=== PATIENT | female | born 1975 | race Caucasian/White ===

== ENCOUNTER 2019-02-10 21:50 | Emergency (ER) | payer BC ==
--- OUTSIDE RECORDS SUMMARY | 2019-02-10 21:52 | XMS REPORT ---
:1975 Author Organization [facility] Address [address] [place] [address] Dr. Mccurdy [address] [place] [id number] Care Team Providers Name Role Phone Unavailable Unavailable Unavailable Problems This patient has no known problems. Allergies, Adverse Reactions, Alerts This patient has no known allergies or adverse reactions. Medications This patient has no known medications.
[2019-02-10 23:05] LABS: Absolute Lymphocytes (CBC) 3.1 K/uL (0.7-4.9); Basophils % 0.4 % (0-1.3); Lymphocytes % 29.2 % (15.3-44.8); MPV 9.2 fL (7.6-11.3); RBC Red Blood Cell Count 4.18 M/uL (3.86-4.86)
[2019-02-10 23:15] LABS: Urine Blood TRACE (NEG); Urine Glucose NEGATIVE (NEG); Urine Protein NEGATIVE (NEG)
[2019-02-10 23:19] LABS: ALT/SGPT 30 U/L (12-78); AST/SGOT 15 U/L (15-37); Albumin 3.6 g/dL (3.4-5.0); Alkaline Phosphatase 80 U/L (45-117); BUN Blood Urea Nitrogen 7 mg/dL (7-18); Bicarbonate 28 mmol/L (21-32); Bilirubin Direct 0.2 mg/dL (0-0.2); Bilirubin Total 0.6 mg/dL (0.2-1.0); Glucose Level 99 mg/dL (74-106); Lipase 57 U/L (73-393); Potassium 3.2 mmol/L (3.5-5.1); Protein, Total 7.6 g/dL (6.4-8.2); Sodium Level 140 mmol/L (136-145)
--- NOTE | 2019-02-11 02:38 | ER ---
Nurse's Notes [facility] Name: Brandi Joyce Age: 43 yrs Sex: Female : 1975 Arrival Date: 02/10/2019 Time: 21:54 Bed Ultrasound Private MD: Diagnosis: Other ovarian cysts Presentation: 02/10 21:57 Presenting complaint: Patient states: Lower abd pain since Monday, denies N/V/D, la1 reports sharp pain in lower abd when using restroom. Transition of care: patient was not received from another setting of care. Onset of symptoms was February 10, 2019. Risk Assessment: Do you want to hurt yourself or someone else? Patient reports no desire to harm self or others. Initial Sepsis Screen: Does the patient meet any 2 criteria? No. Patient's initial sepsis screen is negative. Does the patient have a suspected source of infection? No. Patient's initial sepsis screen is negative. Care prior to arrival: None. 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 - Social history:: Smoking status: Patient uses tobacco products, smokes one-half pack cigarettes per day. - Ebola Screening: : No symptoms or risks identified at this time. Screenin:37 Abuse screen: Denies threats or abuse. Denies injuries from another. Nutritional rr5 screening: No deficits noted. Tuberculosis screening: No symptoms or risk factors identified. Fall Risk IV access (20 points). Total Schmidt Fall Scale indicates No Risk (0-24 pts). Assessment: 22:00 General: Appears in no apparent distress. uncomfortable, Behavior is calm, cooperative, rr5 appropriate for age. Pain: Complains of pain in abdomen Pain does not radiate. Pain currently is 5 out of 10 on a pain scale. Quality of pain is described as aching, Pain began gradually, Is intermittent. Neuro: Level of Consciousness is awake, alert, obeys commands, Oriented to person, place, time, situation, Appropriate for age. Cardiovascular: Capillary refill < 3 seconds Patient's skin is warm and dry. Respiratory: Airway is patent Respiratory effort is even, unlabored, Respiratory pattern is regular, symmetrical. GI: Abdomen is round obese, Bowel sounds present X 4 quads. Abd is soft and non tender Reports lower abdominal pain, upper abdominal pain. : No signs and/or symptoms were reported regarding the genitourinary system. EENT: No signs and/or symptoms were reported regarding the EENT system. Derm: Skin is intact, Skin temperature is warm. Musculoskeletal: Circulation, motion, and sensation intact. Capillary refill < 3 seconds. 23:00 Reassessment: Patient appears in no apparent distress at this time. Patient and/or rr5 family updated on plan of care and expected duration. Pain level reassessed. Patient is alert, oriented x 3, equal unlabored respirations, skin warm/dry/pink. chatting with wrapping machine helper at bedside. 02/11 00:00 Reassessment: Patient appears in no apparent distress at this time. Patient and/or rr5 family updated on plan of care and expected duration. Pain level reassessed. Patient is alert, oriented x 3, equal unlabored respirations, skin warm/dry/pink. awaiting for CT result. 00:40 Reassessment: reassessment done by ED provider with order made of transvaginal 5 ultrasound. 02:00 Reassessment: follow up to xray department for the ultrasound staff gas operation manager. rr5 02:44 Reassessment: Patient appears in no apparent distress at this time. back from 5 ultrasound ED provider spoke to patient explained the results. patient verbalized understanding. discharge instruction given and explained without complaints made. Vital Signs: 02/10 21:58 BP 147 / 103; Pulse 108; Resp 16; Temp 97.6; Pulse Ox 100% on R/A; Weight 123.83 kg; la1 Height 5 ft. 6 in. (167.64 cm); Pain 4/10; 23:00 BP 141 / 95; Pulse 99; Resp 17; Pulse Ox 99% ; rr5 02/11 00:00 BP 155 / 95; Pulse 95; Resp 19; Pulse Ox 97% ; rr5 01:05 BP 145 / 101; Pulse 90; Resp 17; Pulse Ox 98% ; rr5 02:00 BP 165 / 105; Pulse 92; Resp 17; Pulse Ox 99% ; rr5 02:40 BP 148 / 98; Pulse 86; Resp 19; Pulse Ox 100% ; rr5 02/10 21:58 Body Mass Index 44.06 (123.83 kg, 167.64 cm) la1 ED Course: 02/10 21:54 Patient arrived in ED. cf2 21:57 Arm band placed on right wrist. la1 21:58 Triage completed. la1 22:00 Patient has correct armband on for positive identification. Placed in gown. Bed in low rr5 position. Call light in reach. Side rails up X2. Pulse ox on. NIBP on. 22:02 Kunal Oshea, ASHLEY is Primary Nurse. rr5 22:04 Ishan Vargas PA is PHCP. jr8 22:04 Percy León MD is Attending Physician. jr8 22:35 Inserted saline lock: 20 gauge in right forearm, using aseptic technique. Blood rr5 collected. 23:59 CT Abd/Pelvis - IV Contrast Only In Process Unspecified. EDMS 02/11 02:35 Char Brown MD is Referral Physician. jr8 02:36 Transvaginal Study (probe) In Process Unspecified. EDMS 02:50 No provider procedures requiring assistance completed. IV discontinued, intact, rr5 bleeding controlled, No redness/swelling at site. Pressure dressing applied. Administered Medications: No medications were administered Outcome: 02:36 Discharge ordered by . jr8 02:50 Discharged to home ambulatory, with family. rr5 02:50 Condition: stable 02:50 Discharge instructions given to patient, Instructed on discharge instructions, follow up and referral plans. medication usage, Demonstrated understanding of instructions, follow-up care, medications, Prescriptions given X 2. 02:50 Patient left the ED. rr5 Signatures: Dispatcher [employer] EDSD Ishan Vargas PA PA jr8 Faisal Norris RN RN la1 Kunal Oshea RN RN rr5 Zahra Perry cf2
--- NOTE | 2019-02-11 02:39 | EDPHYS ---
Physician Documentation [facility] Name: Brandi Joyce Age: 43 yrs Sex: Female : 1975 Arrival Date: 02/10/2019 Time: 21:54 Bed Ultrasound Private MD: ED Physician Percy León HPI: 02/10 23:19 This 43 yrs old Female presents to ER via Ambulatory with complaints of jr8 Abdominal Pain. 23:19 The patient presents with abdominal pain in the lower abdomen. Onset: The jr8 symptoms/episode began/occurred acutely, 2 day(s) ago. 23:19 The symptoms radiate to back. Associated signs and symptoms: none. The symptoms are jr8 described as vague. Modifying factors: The symptoms are alleviated by nothing, the symptoms are aggravated by nothing. Severity of pain: At its worst the pain was moderate in the emergency department the pain is unchanged. The patient has not experienced similar symptoms in the past. The patient has not recently seen a physician. Patient stated that she started with bilateral lower back pain that went to the abdomen. Now just having lower abdominal pain . 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 - Social history:: Smoking status: Patient uses tobacco products, smokes one-half pack cigarettes per day. - Ebola Screening: : No symptoms or risks identified at this time. ROS: 23:19 Eyes: Negative for injury, pain, redness, and discharge, ENT: Negative for injury, jr8 pain, and discharge, Neck: Negative for injury, pain, and swelling, Cardiovascular: Negative for chest pain, palpitations, and edema, Respiratory: Negative for shortness of breath, cough, wheezing, and pleuritic chest pain, MS/Extremity: Negative for injury and deformity, Skin: Negative for injury, rash, and discoloration, Neuro: Negative for headache, weakness, numbness, tingling, and seizure. 23:19 Abdomen/GI: Positive for abdominal pain, Negative for nausea, vomiting, and diarrhea, constipation, abdominal cramps, abdominal distension, anorexia, dysphagia, hematemesis, black/tarry stool, rectal pain, rectal bleeding, bowel incontinence, flatulence. 23:19 Back: Positive for pain at rest, Negative for pain with movement. Exam: 23:19 Eyes: Pupils equal round and reactive to light, extra-ocular motions intact. Lids and jr8 lashes normal. Conjunctiva and sclera are non-icteric and not injected. Cornea within normal limits. Periorbital areas with no swelling, redness, or edema. ENT: Nares patent. No nasal discharge, no septal abnormalities noted. Tympanic membranes are normal and external auditory canals are clear. Oropharynx with no redness, swelling, or masses, exudates, or evidence of obstruction, uvula midline. Mucous membranes moist. Neck: Trachea midline, no thyromegaly or masses palpated, and no cervical lymphadenopathy. Supple, full range of motion without nuchal rigidity, or vertebral point tenderness. No Meningismus. Cardiovascular: Regular rate and rhythm with a normal S1 and S2. No gallops, murmurs, or rubs. Normal PMI, no JVD. No pulse deficits. Respiratory: Lungs have equal breath sounds bilaterally, clear to auscultation and percussion. No rales, rhonchi or wheezes noted. No increased work of breathing, no retractions or nasal flaring. Back: No spinal tenderness. No costovertebral tenderness. Full range of motion. Skin: Warm, dry with normal turgor. Normal color with no rashes, no lesions, and no evidence of cellulitis. MS/ Extremity: Pulses equal, no cyanosis. Neurovascular intact. Full, normal range of motion. Neuro: Awake and alert, GCS 15, oriented to person, place, time, and situation. Cranial nerves II-XII grossly intact. Motor strength 5/5 in all extremities. Sensory grossly intact. Cerebellar exam normal. Normal gait. 23:19 Abdomen/GI: Inspection: obese Bowel sounds: active, all quadrants, Palpation: soft, in all quadrants, mild abdominal tenderness, in the suprapubic area, mass, is not appreciated, rebound tenderness, is not appreciated, voluntary guarding, is not appreciated, involuntary guarding, is not appreciated, no appreciated organomegaly, Indicators: McBurney's point is not tender, Stratton's sign is negative, Rovsing's sign is negative, Liver: tenderness, is not appreciated. Vital Signs: 21:58 BP 147 / 103; Pulse 108; Resp 16; Temp 97.6; Pulse Ox 100% on R/A; Weight 123.83 kg; la1 Height 5 ft. 6 in. (167.64 cm); Pain 4/10; 23:00 BP 141 / 95; Pulse 99; Resp 17; Pulse Ox 99% ; rr5 02/11 00:00 BP 155 / 95; Pulse 95; Resp 19; Pulse Ox 97% ; rr5 01:05 BP 145 / 101; Pulse 90; Resp 17; Pulse Ox 98% ; rr5 02:00 BP 165 / 105; Pulse 92; Resp 17; Pulse Ox 99% ; rr5 02:40 BP 148 / 98; Pulse 86; Resp 19; Pulse Ox 100% ; rr5 02/10 21:58 Body Mass Index 44.06 (123.83 kg, 167.64 cm) in1 MDM: 02/10 22:04 Patient medically screened. jr8 02/11 02:34 Data reviewed: vital signs, nurses notes, lab test result(s), radiologic studies, CT jr8 scan, ultrasound. Data interpreted: Pulse oximetry: on room air is 98 %. Interpretation: normal. Counseling: I had a detailed discussion with the patient and/or guardian regarding: the historical points, exam findings, and any diagnostic results supporting the discharge/admit diagnosis, lab results, radiology results, the need for outpatient follow up, an OB/Gyne specialist, to return to the emergency department if symptoms worsen or persist or if there are any questions or concerns that arise at home. 02/10 21:59 Order name: Basic Metabolic Panel; Complete Time: 23:21 in02/10 21:59 Order name: CBC with Diff; Complete Time: 23:18 in02/10 21:59 Order name: Creatinine for Radiology; Complete Time: 23:21 in02/10 21:59 Order name: Hepatic Function; Complete Time: 23:21 02/10 21:59 Order name: Lipase; Complete Time: 23:21 in02/10 22:18 Order name: Urine Dipstick--Ancillary (enter results); Complete Time: 23:18 nc 02/10 21:59 Order name: IV Saline Lock; Complete Time: 22:36 in02/10 21:59 Order name: Labs collected and sent; Complete Time: 22:36 [facility] 02/10 21:59 Order name: Urine Dipstick-Ancillary (obtain specimen); Complete Time: 22:36 [facility] 02/10 21:59 Order name: Urine Test (obtain specimen); Complete Time: 22:36 [facility] 02/10 22:18 Order name: Urine --Ancillary (enter results); Complete Time: 23:18 nc 02/10 23:00 Order name: CT Abd/Pelvis - IV Contrast Only [facility] 02/11 00:49 Order name: Transvaginal Study (probe) 8 Administered Medications: No medications were administered Disposition: 02:58 Co-signature as Attending Physician, Percy León MD I agree with the assessment and kdr plan of care. Disposition: 02/11/19 02:36 Discharged to Home. Impression: Other ovarian cysts. - Condition is Stable. - Discharge Instructions: Ovarian Cyst. - Prescriptions for Ibuprofen 800 mg Oral Tablet - take 1 tablet by ORAL route every 12 hours As needed take with food; 20 tablet. Tylenol- Codeine #3 300-30 mg Oral Tablet - take 2 tablets by ORAL route every 6 hours As needed; 12 tablet. - Medication Reconciliation Form, Thank You Letter, Antibiotic Education, Prescription Opioid Use form. - Follow up: Char Brown MD; When: 2 - 3 days; Reason: Recheck today's complaints, Continuance of care, Re-evaluation by your physician. - Problem is new. - Symptoms have improved. Signatures: Dispatcher [employer] EDMS Percy León MD MD [facility] Ishan Vargas PA PA jr8 Faisal Norris RN RN la1 Kunal Oshea RN RN rr5 Corrections: (The following items were deleted from the chart) 02/10 23:20 23:19 Onset: The symptoms/episode began/occurred acutely, 8 8 02/11 02:50 02:36 02/11/2019 02:36 Discharged to Home. Impression: Other ovarian cysts. Condition rr5 is Stable. Forms are Medication Reconciliation Form, Thank You Letter, Antibiotic Education, Prescription Opioid Use. Follow up: Char Brown; When: 2 - 3 days; Reason: Recheck today's complaints, Continuance of care, Re-evaluation by your physician. Problem is new. Symptoms have improved. jr8
--- NOTE | 2019-02-11 10:08 | RAD REPORT ---
EXAM DESCRIPTION: US - Transvaginal Study Probe - 02/11/2019 2:36 am CLINICAL HISTORY: Abdominal pain, right adnexal mass, abnormal CT study Preliminary findings provided at the time of the study. COMPARISON: CT exam February 10, 2019 TECHNIQUE: Endovaginal sonography was performed. FINDINGS: The uterus is 8.8 x 3.9 x 5.5 cm. No myometrial mass. Endometrium is 6 mm in thickness, no rmal range, with no focal endometrial abnormality seen. The left ovary is identified and unremarkable. Normal blood flow within the left ovary. There is a sm all 18 mm left ovarian cyst. No worrisome left adnexal finding. A small amount of free fluid is present. Enlarged right ovary is present containing a large heterogeneous predominantly cystic mass 6.7 cm in maximum dimension. Echogenic strands are seen throughout the complex cystic mass. This is most likely hemorrhagic ovarian cyst. Doppler evaluation shows normal blood flow in the ovarian stroma draping t he margin of this complex cyst. Solid mass component of the cyst is not suspected. Dilatation of the fallopian tube is not identified. IMPRESSION: 1. Large complex 6.7 centimeter cystic ovarian mass most likely a large hemorrhagic cyst . No fallopian tube dilatation identified. 2. Follow-up sonography in 2-3 months could be performed to monitor for involution. 3. Small quantity of free fluid in the cul de sac but no free blood suspected. 4. Uterus, left ovary and left adnexa without suspicious findings.
--- NOTE | 2019-02-11 10:19 | RAD REPORT ---
EXAM DESCRIPTION: CT - Abdomen Pelvis W Contrast - 02/11/2019 12:17 am CLINICAL HISTORY: Abdominal pain. COMPARISON: None. TECHNIQUE: CT scan of the abdomen and pelvis was performed with IV contrast. This exam was performed according to our departmental dose-optimization program, which includes automated exposure control, adjustment of the mA and/or kV according to patient size and/or use of iterative reconstruction techn ique. FINDINGS: The lung bases are clear. No pleural or pericardial effusions. Mild hepatic steatosis. The spleen, pancreas, gallbladder, adrenal glands, and kidneys are unremarkable. No hydronephrosis or ur inary stones. There is a 5 cm cystic structure in the right adnexa. There is suggestion of mild right hydrosalpinx. No small bowel obstruction. The appendix is normal. No evidence of acute diverticulitis. No adenopath y, free fluid, or free air is identified. The aorta is normal caliber. The osseous structures are int act. IMPRESSION: Query right-sided hydrosalpinx with 5 cm right ovarian cyst. Consider pelvic ultrasound for complete evaluation. Electronically signed by: Toby Bernabe MD 02/11/2019 12:08 AM CDT Due to temporary technical issues with the PACS/Fluency reporting system, reports are being signed by the in house radiologist as a courtesy to ensure prompt reporting. The interpreting radiologist is f analy responsible for the content of the report.
== END 2019-02-11 02:50 | disposition home or self-care (01) ==
LOC: ER 21:50
DX: N83.299 Other ovarian cyst, unspecified side (principal); I10 Essential (primary) hypertension; F17.210 Nicotine dependence, cigarettes, uncomplicated
CPT/HCPCS: 85025; 80048; 36415; 81025; 80076; 81003; 83690; 74177; 76830; 99284; Q9967

== ENCOUNTER 2019-02-21 10:25 | Day surgery (SDC) | payer BC ==
[2019-02-19 12:41] LABS: Absolute Lymphocytes (CBC) 2.9 K/uL (0.7-4.9); Basophils % 0.7 % (0-1.3); Hematocrit 39.6 % (36.0-45.0); Lymphocytes % 33.3 % (15.3-44.8); MPV 8.9 fL (7.6-11.3); RBC Red Blood Cell Count 4.29 M/uL (3.86-4.86)
[2019-02-19 12:47] LABS: Urine Appearance CLOUDY; Urine Bilirubin NEGATIVE (NEG); Urine Blood NEGATIVE (NEG); Urine Color YELLOW; Urine Glucose NEGATIVE (NEG); Urine Protein NEGATIVE (NEG); Urine Urobilinogen 0.2 mg/dL (0.2-1.0)
[2019-02-19 12:48] LABS: Urine Microscopic Reflex ORDER UMIC
[2019-02-19 13:18] LABS: Urine Bacteria 20-50 /HPF (<20); Urine Culture Reflex Order REFLEXED; Urine RBC <5 /HPF (NONE SEEN)
--- OUTSIDE RECORDS SUMMARY | 2019-02-21 10:28 | XMS REPORT ---
:1975 Author [facility] Address [address] [place] [address] Dr. Mccurdy [address] [place] [id number] Care Team Providers Name Role Phone Unavailable Unavailable Unavailable Problems This patient has no known problems. Allergies, Adverse Reactions, Alerts This patient has no known allergies or adverse reactions. Medications This patient has no known medications.
[2019-02-21] MEDS ORDERED: SCOPOLAMINE HYDROBROMIDE PATCH TD ONE (10:47)
[2019-02-21] MEDS ORDERED: Ringers Lactate 1,000 ML IV ONE ×2 (10:47→12:26)
[2019-02-21] MEDS ORDERED: NA CHLORIDE 0.9% 1,000 ML ONE (10:56)
[2019-02-21 10:57] LABS: Specific Gravity 1.015 (1.005-1.030)
[2019-02-21] MEDS ORDERED: LIDOCAINE 2% MPF 5 ML VIAL ONE (11:00)
[2019-02-21] MEDS ORDERED: PROPOFOL 200 MG/20 ML VIAL IV ONE (11:00)
[2019-02-21] MEDS ORDERED: FENTANYL CITR 100 MCG/2 ML ONE ×2 (11:02→12:18)
[2019-02-21] MEDS ORDERED: MIDAZOLAM HCL 2 MG/2 ML INJ ONE ×2 (11:02→11:13)
[2019-02-21] MEDS ORDERED: ROCURONIUM 50 MG/5 ML VIAL IV ONE (11:08)
[2019-02-21] MEDS ORDERED: BUPIVACAINE 0.25% PF 10 ML VIAL ONE (11:28)
[2019-02-21] MEDS ORDERED: VECURONIUM 10 MG/VIAL IV ONE (12:24)
[2019-02-21] MEDS ORDERED: NS 0.9% VIAL 10 ML ONE (12:24)
[2019-02-21] MEDS ORDERED: ONDANSETRON 4 MG/2 ML VIAL ONE (12:29)
[2019-02-21] MEDS ORDERED: dexAMETHasone 10 MG/ML VIAL ONE (12:30)
[2019-02-21] MEDS ORDERED: NS 0.9% VIAL 20 ML ONE (12:41)
[2019-02-21] MEDS ORDERED: VASOPRESSIN 20 UNIT/ML VIAL ONE (12:42)
[2019-02-21] MEDS ORDERED: ALBUTEROL INHALER 60 PUFF/8 GM IH ONE (12:57)
[2019-02-21] MEDS ORDERED: Mastisol Adhesive Liq ONE (13:06)
[2019-02-21] MEDS ORDERED: GLYCOPYRROLATE 0.2 MG/ML SYR ONE (13:28)
[2019-02-21] MEDS ORDERED: NEOSTIGMINE 1 MG/ML -10 ML VIAL ONE (13:30)
[2019-02-21] MEDS ORDERED: KETOROLAC 30 MG/ML INJ ONE (13:32)
[2019-02-21] MEDS ORDERED: PROMETHAZINE 25 MG/ML VIAL ONE (14:41)
[2019-02-21] MEDS: HYDROMORPHONE HCL 1 MG/ML INJ ONE ×2 (14:42→14:48)
[2019-02-21 15:59] VITALS: TEMP 97.8
[2019-02-21 17:17] VITALS: BP 145/78; O2SAT 94
--- NOTE | 2019-02-22 02:07 | OP ---
Date of Procedure: 02/21/2019 Surgeon: Char Brown MD Head Of Training And Development: Rand Agudelo. Preoperative Diagnoses: Pelvic pain, menorrhagia, right adnexal mass. Postoperative Diagnoses: Heavy menstrual periods (AUB-P/O/L), pelvic pain, right hematosalpinx, left ovarian endometrioma and endometriosis. Procedures Performed: 1.Hysteroscopy. 2.Dilation and curettage. 3.Laparoscopy. 4.Bilateral salpingectomy. 5.Right oophorectomy. 6.Lysis of adhesions from the sigmoid and from the lateral chand on both sides. 7.Left ovarian endometrioma removal. 8.Endometriosis excision. 9.Myomectomy x1. Anesthesia: General endotracheal. Specimens: Endometrial curettings; left paraovarian implant; myoma; bilateral tubes and ovaries, the right is the larger one in the left ovarian endometrioma. Estimated Blood Loss: Minimal. Complications: None. Condition: Stable. Description Of Procedure: Patient was taken back to OR, placed in supine fashion on the operating ta ble. After general anesthesia was given, she was placed in a dorsal lithotomy position using Jake s tirrups. Pelvic exam was performed. Very difficult to discern an adnexal mass on this patient, just an enlarged uterus and mobile. Abdomen, vulva, vagina, and perineum were prepped and draped in a sterile fashion. Maurer was placed to drain the bladder and speculum was placed to expose the cervix. Anterior lip grasped with 2 Allis clamps. Diagnostic SlimLine hysteroscope was used to perform hysteroscopy. Cavity was inspected wi th tiny low polypoid endometrial area on the left coronal end. After the scope was removed, attentio n was paid to scrape this area and a polypoid structure was retrieved and endometrial curettings adeq uately for pathological examination. All these were sent away. Then, a diagnostic VCare was introdu jatinder and this area was draped. A 1 cm infraumbilical incision was made with a scalpel using the open laparoscopy technique. Fascia was incised and tagged. S-retractor was placed in the peritoneum after directly sharply entering the peritoneal cavity. Domingo introduced to inflate the patient's abdomen and insufflated with warm car bon dioxide. Three 5 ports were placed suprapubic and bilateral lower quadrants under direct vision. Liver appeared to be having a micronodular change. No known history of cirrhosis in this patient a s the patient was not diagnosed. When the patient was placed in steep Trendelenburg, it was appeared to be enlarged myoma on the right lateral aspect on the fundus. Dilated right hematosalpinx with ad hesions to the sigmoid colon, uterosacral ligament on the lateral pelvic sidewall and the posterior p elvic wall. Small simple 3 cm cyst on the right ovary. On the left side, there was micronodular imp lants on the midsection of the tube. Tiny implants that were vesicular on the paraovarian area and o n the tube as well. There was a cyst on the left ovary suspicious for an endometrioma. No other implants were visualized in the pelvic cavity. So, plan was to remove both tubes, remove th e right ovary as well, then on the left as the pain was predominantly on this side and there was evid ence of this mesosalpinx on this side. The left side plan to remove the implants and then the endome trioma from the left ovary. After the adhesions of the 2 distal left tube were taken down with the L igaSure and the adhesions from the sigmoid colon and uterosacral and lateral chand were taken down fr om the tube, the tube was mobilized. Then, the mesosalpinx was opened up laterally and it was taken starting at the cornual end all the way to the distal part. Then, the ovary was removed taking the I P after isolating the IP and making incisions on the peritoneum medially and laterally. The specimen s were placed in the anterior cul-de-sac on the left side. The endometriosis on the left parovarian area was excised. Then, the tube was excised with the help of the LigaSure. The endometrium was inc ised with a monopolar needle and then the wall of the endometrium was identified and peeled off the b ase. The base was cauterized with the bipolar LigaSure paddles. Partial cortex of the ovary was rem chad with the endometrioma and then there was good apposition of the edges. No stitch was placed. No other endometriosis was noted in the pelvic cavity. On close inspection of all the specimens, the fibroid was taken down at its base with the help of the LigaSure before the dissection on the right side was done as this was obstructing my view of the right adnexa. The 10 scope was swapped over to 5 and then all the specimens were placed in a bag. All the trocars were removed under direct vision. There was no bleeding. The Domingo was removed. All the side port sites were injected with 0.25% M arcaine, 10 cc total. At the umbilical port, bag was opened up and carefully the hydrosalpinx was in cised. Brownish fluid consistent with hematosalpinx and possible old endometriosis was suctioned out carefully with minimal spillage onto the skin around the incision. This was also cleaned up. All t he specimens were retrieved through this incision after the incision was opened up with a nasal specu lum in order to permit the specimens. Once this was done thorough irrigation and suction performed at the incision, incision was closed at the fascia with 0 Vicryl tag sutures. Then, all skin incisions were closed with 4-0 Vicryl in interr upted fashion. VCare and Maurer were removed. Patient was recovered from anesthesia and taken to PAC U in stable condition. EBL minimal, tolerated well. She will follow up with me in 1 week. SIOMARA/MARCO Voice ID: [id number] Report ID: [id number]
== END 2019-02-21 17:15 | disposition home or self-care (01) ==
LOC: OR 10:25
PROVIDERS: ATTEND Obstetrics & Gynecology
PROC: 0UJD8ZZ Inspection of Uterus and Cervix, Via Natural or Artificial Opening Endoscopic (ICD-10-PCS; 2019-02-21)
PROC: 0UT04ZZ Resection of Right Ovary, Percutaneous Endoscopic Approach (ICD-10-PCS; 2019-02-21)
PROC: 0UT74ZZ Resection of Bilateral Fallopian Tubes, Percutaneous Endoscopic Approach (ICD-10-PCS; 2019-02-21)
PROC: 0UB14ZX Excision of Left Ovary, Percutaneous Endoscopic Approach, Diagnostic (ICD-10-PCS; 2019-02-21)
PROC: 0UB94ZZ Excision of Uterus, Percutaneous Endoscopic Approach (ICD-10-PCS; 2019-02-21)
PROC: 0UDB7ZX Extraction of Endometrium, Via Natural or Artificial Opening, Diagnostic (ICD-10-PCS; principal; 2019-02-21 11:30)
DX: N92.1 Excessive and frequent menstruation with irregular cycle (principal); D25.2 Subserosal leiomyoma of uterus; N83.6 Hematosalpinx; N80.1 Endometriosis of ovary; N83.291 Other ovarian cyst, right side; N80.9 Endometriosis, unspecified; N84.0 Polyp of corpus uteri; I10 Essential (primary) hypertension; E03.9 Hypothyroidism, unspecified; K21.9 Gastro-esophageal reflux disease without esophagitis; F17.210 Nicotine dependence, cigarettes, uncomplicated; Z80.0 Family history of malignant neoplasm of digestive organs; Z82.49 Family history of ischemic heart disease and other diseases of the circulatory system
CPT/HCPCS: 58558; 58661; 58662; 58545; 87088; 85025; 87086; 36415; 86900; 86850; 81025; 86901; 88305; 87077; 87186; J2704; J2710; J2550; J2250 ×2; J3010 ×2; J1100; J1170; J7030; J2405; 81003; 81015

== ENCOUNTER 2021-11-09 08:01 | Day surgery (SDC) | payer BC ==
[2021-11-09] MEDS ORDERED: Ringers Lactate 1,000 ML IV ONE (08:26)
[2021-11-09] MEDS ORDERED: propofoL 200 MG/20 ML VIAL IV ONE ×2 (10:15→10:16)
[2021-11-09] MEDS ORDERED: LIDOCAINE 1% MPF 5 ML VIAL ONE (10:15)
[2021-11-09] MEDS ORDERED: FENTANYL CITR 100 MCG/2 ML ONE (10:15)
[2021-11-09] MEDS ORDERED: MIDAZOLAM HCL 2 MG/2 ML INJ ONE (10:15)
[2021-11-09] MEDS ORDERED: LIDOCAINE 1% W/EPI 1:100,000 MDV 20 ML VIAL ONE (10:33)
[2021-11-09] MEDS ORDERED: SILVER NITRATE 1 APPL TOP ONE (10:33)
[2021-11-09] MEDS ORDERED: LIDOCAINE 1% W/EPI 1:100,000 MDV 20 ML VIAL IJ ONE (10:38)
[2021-11-09] MEDS ORDERED: dexAMETHasone 10 MG/ML VIAL ONE (12:10)
[2021-11-09] MEDS ORDERED: ONDANSETRON 4 MG/2 ML VIAL ONE (12:24)
[2021-11-09] MEDS ORDERED: KETOROLAC 30 MG/ML INJ ONE (12:24)
--- NOTE | 2021-11-09 12:51 | P.BOP ---
Preoperative diagnosis: AUB-L Postoperative diagnosis: same, no intracavitary myoma Primary procedure: hysteroscopy d/c Dobby Looms Pegger: NONE,NONE Estimated blood loss: min Specimen: EMC Findings: cavity AF , no leiomyoma Anesthesia: General Complications: None Transferred to: Recovery Room Condition: Good
[2021-11-09 13:28] VITALS: BP 113/62; TEMP 97.2; O2SAT 97
[2021-11-09] MEDS ORDERED: HOME MED 1 EA UNK (Tiotropium Bromide [Spiriva Respimat] 4 GM Mist.Inhal) IH SCH (21:00)
[2021-11-10] MEDS ORDERED: METOPROLOL XL 100 MG TAB PO SCH (06:00)
[2021-11-10] MEDS ORDERED: HOME MED 1 EA UNK (Esomeprazole Mag Trihydrate [Nexium] 40 MG Capsule.Dr) PO SCH (09:00)
[2021-11-10] MEDS ORDERED: HOME MED 1 EA UNK (Levothyroxine Sodium [Levothyroxine Sodium] 137 MCG Tablet) PO SCH (09:00)
[2021-11-10] MEDS ORDERED: HOME MED 1 EA UNK (Levocetirizine Dihydrochloride [Xyzal] 5 MG Tablet) PO SCH (09:00)
[2021-11-10] MEDS ORDERED: MILK THISTLE SEED EXTRACT 175 MG PO SCH (09:00)
[2021-11-10] MEDS ORDERED: HOME MED 1 EA UNK (Pnv No.95/Ferrous Fum/Folic Ac [Prenatal Multivitamin Tablet] Tablet) PO SCH (09:00)
--- NOTE | 2021-11-11 05:12 | OP ---
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 Preoperative Diagnosis: AUB-L. Postoperative Diagnoses: AUB-L. No intracavitary myoma. Procedure Performed: Hysteroscopy, dilation and curettage. Complications: No complications. Drains: No drains. Ebl: Minimal. Specimens: Endometrial curettings. Findings: The cavity anteflexed. No leiomyoma. Anesthesia: General with LMA. Indications: The patient is a 46-year-old female with abnormal bleeding, found to have fibroids, karolina pected intracavitary myoma, so brought to the hospital for endometrial sampling after cavity visualiz ation directly with the hysteroscope. Description Of Procedure: After informed consent, she was taken back to the OR, placed in supine fas hion on the table. General anesthesia was given in anticipation that there could be a myomectomy thr ough the hysteroscope. Then placed in dorsal lithotomy position using Jake stirrups. Speculum was placed to expose the cer vix, Betadine was done before the speculum was placed. The entire vulva, vagina, and sarah beth neum were prepped and draped. The anterior lip was grasped with a single-tooth tenaculum. The cervi x was dilated to 20-Armenian. Diagnostic SlimLine hysteroscope was used to enter the cavity. Once ins berta the cavity was adequate distance, no evidence of any intracavitary myoma was seen . No polyps. Endometrium appeared to be unremarkable but thickened. Scope pulled out. Endometrial cure ttings were performed with 0 curette. Adequately normal surfaces of the uterine cavity handed up for permanent pathology. All the instruments were removed. Instrument and sponge counts were correct a t the end of the case. The patient tolerated the procedure very well, recovered from anesthesia, and taken to PACU in stable condition. She has a 1-week followup appointment with me. SIOMARA/MARCO Voice ID: [id number] Report ID: [id number]
== END 2021-11-09 13:37 | disposition home or self-care (01) ==
LOC: OR 08:01
PROVIDERS: ATTEND Obstetrics & Gynecology
PROC: 0UJD8ZZ Inspection of Uterus and Cervix, Via Natural or Artificial Opening Endoscopic (ICD-10-PCS; 2021-11-09)
PROC: 0UDB7ZX Extraction of Endometrium, Via Natural or Artificial Opening, Diagnostic (ICD-10-PCS; principal; 2021-11-09 09:30)
DX: N93.9 Abnormal uterine and vaginal bleeding, unspecified (principal); D25.2 Subserosal leiomyoma of uterus; N80.3 Endometriosis of pelvic peritoneum; E66.01 Morbid (severe) obesity due to excess calories; N91.1 Secondary amenorrhea; D25.9 Leiomyoma of uterus, unspecified; F17.218 Nicotine dependence, cigarettes, with other nicotine-induced disorders; I10 Essential (primary) hypertension; E03.9 Hypothyroidism, unspecified; K21.9 Gastro-esophageal reflux disease without esophagitis
CPT/HCPCS: 88305; J1100; J2250; J2405; J2704; J3010; J7120

== ENCOUNTER 2025-01-18 07:25 | Emergency (ER) | payer BC ==
--- OUTSIDE RECORDS SUMMARY | 2025-01-18 07:36 | XMS REPORT | Clinical Summary ---
Author Name Unknown Organization [facility] Address [address] [place] [address] Care Team Providers Care Multiple Drum Sander Name Role Phone Daniel Ho MD Primary Care Provider [phone] Char Brown MD Unavailable [phone] Aaron Lee MD Unavailable Daniel Ho MD Primary Care Provider [phone] Ashok Sainz Unavailable Allergies No known active allergies Medications * This document contains information received from the source organization and may not represent a complete record from that organization. levothyroxine (SYNTHROID, LEVOTHROID) 125 mcg tablet Take 100 mcg by mouth daily. 07/16/19 22 Active metoprolol succinate (TOPROL XL) 100 mg 24 hr tablet daily. 05/22/20 21 Active pantoprazole (PROTONIX) 40 mg EC tablet TAKE 1 TABLET BY MOUTH ONCE A DAY 30 MINUTES BEFORE BREAKFAST Active ALPRAZolam (XANAX) 0.25 mg tabletIndicatio ns:anxiety,prio r to MRI Take 2 tablets (0.5 mg) by mouth. Active tiotropium bromide 2.5 mcg/actuation mist Inhale 2.5 mcg by mouth twice daily. 12/22/19 16 025 Discontinued esomeprazole (NexIUM) 40 MG capsule daily. 025 Discontinued milk thistle 175 mg tablet Take 175 mg by mouth daily. 025 Discontinued cholecalciferol , vitamin D3, 10 mcg (400 units) tablet Take 1 tablet (400 Units) by mouth. 025 Discontinued no115/iron/foli c acid ( 19 ORAL) Take by mouth daily. 025 Discontinued loratadine (CLARITIN) 10 mg tablet Take 1 tablet (10 mg) by mouth daily. 025 Discontinued peg 3350-electrolyt es (Golytely) 236-22.74-6.74 g solutionIndicat ions:Colonoscop y planned Use as directed by ordering provider. 4000 mL 12/07/19 22 025 Discontinued acetaminophen (Tylenol Extra Strength) 500 mg tabletIndicatio ns:Complex atypical endometrial hyperplasia Take 2 tablets (1,000 mg) by mouth every 6 (six) hours. 60 tablet 2 11:57 AM CDT 01/12/20 22 025 Discontinued ibuprofen (ADVIL,MOTRIN) 800 mg tabletIndicatio ns:Complex atypical endometrial hyperplasia Take 1 tablet (800 mg) by mouth every 8 (eight) hours. 30 tablet 2 11:57 AM CDT 01/12/20 22 025 Discontinued buPROPion (Wellbutrin XL) 300 mg 24 hr tabletIndicatio ns:Tobacco dependence syndrome Take 1 tablet (300 mg) by mouth every morning. 30 tablet 2 04/21/20 22 025 Discontinued varenicline (CHANTIX) 1 mg tabletIndicatio ns:Tobacco dependence syndrome Take two tablets PO once a day 56 tablet 2 05/12/20 22 025 Discontinued Saccharomyces boulardii (FLORASTOR) 250 mg capsule Take 1 capsule (250 mg) by mouth twice daily. 025 Discontinued Active Problems Patient Care Coordination No te Formatting of this note migh t be different from the original. STP- Colonoscopy (Pre-Procedure questionnaire complete, Case Request entered and prep instructions sent for DelbertMosso on December 06, 2021) Problem Noted Date Diagnosed Date Liver mass 07/26/2024 Tobacco dependence syndrome 01/20/2022 Hypothyroidism 12/09/2021 Tobacco use 12/09/2021 Fatty liver 12/09/2021 Complex atypical endometrial hyperplasia 022 Essential hypertension 12/06/2021 Morbid obesity 12/06/2021 Nicotine dependence 12/06/2021 Subserous leiomyoma of uterus 12/06/2021 Endometriosis of pelvic peritoneum 12/06/2021 Painless rectal bleeding 12/06/2021 Overview (12/06/2021): Added automatically from request for surgery [id number] Encounters * This document contains information received from the source organization and may not represent a complete record from that organization. Date Type Department Care Team Description 01/15/2025 2:47 PM CDT Anesthesia Event [facility] [address] [place] [address], 3rd [place] [address] Sheyla Ruiz MD 01/15/2025 11:13 AM CDT - 01/15/2025 11:59 PM CDT Hospital Encounter [facility] [address] [place] [address], 3rd [place] [address] Uche Pringle APRN Porche, Vivian H., MD Mirza, Alisa, CRNA Fatty liver; Liver mass Discharge Disposition: Home 01/14/2025 4:30 PM CDT POEM Appointments [facility] [address] [place] [address], 6th [place] [address] Daniel Ho MD 01/13/2025 11:59 PM CDT Anesthesia Event [facility] [address] [place] [address], [facility] [place] [address] Gaviota De La Garza, RN 12/19/2024 Orders Only MD [facility] [place] [facility] [address] [facility] [address] [place] [address] Uche Pringle APRN Liver mass (Primary Dx); Fatty liver 11/29/2024 3:10 PM CDT Ancillary Procedure MD [place] [address] [facility] [address] [place] [address] Daniel Ho MD Breast cancer screening 11/29/2024 Documentation MD [facility] [place] [address] [facility] [address] [place] [address] Daquan Olga L, RT 11/29/2024 Travel 09/18/2024 Telephone MD [facility] in [facility] Medical Oncology [address] [place] [address] [address] [place] [address] Aaron Lee MD 09/03/2024 9:45 AM CDT Follow-Up MD [facility] in [facility] Medical Oncology [address] [place] [address] [address] [place] [address] Uche Pringle APRN Le, Phat, MD Liver mass 09/03/2024 7:36 AM CDT Anesthesia Event [facility] [address] [place] [address] [facility], 3rd [place] [address] Gerry Villalta MD Kwok, Cindy, CRNA 09/03/2024 6:02 AM CDT - 09/03/2024 11:59 PM CDT Hospital Encounter [facility] [address] [place] [address] [facility], 3rd [place] [address] Aaron Lee MD Kwater, Andrzej P, MD Kwok, Cindy, CRNA Liver mass Discharge Disposition: Home 09/03/2024 Travel 09/02/2024 4:30 PM CDT POEM Appointments [facility] [address] [place] [address], 6th [place] [address] Daniel Ho MD 09/02/2024 4:19 PM CDT Anesthesia Event [facility] [address] [place] [address], 6th [place] [address] Zaira Turcios, RN 08/07/2024 Orders Only MD [facility] in [facility] Medical Oncology [address] [place] [address] [address] [place] [address] Aaron Lee MD Liver mass (Primary Dx) 07/31/2024 Telephone MD [facility] [place] [facility] [address] [facility] [address] [place] [address] Aaron Lee MD 07/26/2024 10:35 PM HAND RIGGER Ancillary Procedure Image Library [facility] [place] [address] Daniel Ho MD Cancer 07/26/2024 8:05 PM HAND RIGGER Ancillary Procedure [facility] [address] [place] [address] Uche Pringle APRN Liver mass 07/26/2024 8:00 PM HAND RIGGER Ancillary Procedure [facility] [address] [place] [address] Uche Pringle APRN Liver mass 07/26/2024 11:00 AM HAND RIGGER Consult MD [facility] [place] [facility] [address] [facility] [address] [place] [address] Aaron Lee MD Liver mass (Primary Dx); Hepatocellular carcinoma, NOS of liver 07/26/2024 Travel 06/19/2024 Orders Only Gynecologic Oncology Center [address] [facility], 6th [place] [address] Alin Meyers APRN Hepatocellular carcinoma, NOS of liver (Primary Dx) after 01/19/2024 Surgical History Surgery Date Site/Laterality Comments OOPHORECTOMY 12/14/2018 Laparoscopy right oophorectomy bilateral salpingectomy HERNIA REPAIR 1977 Bilateral groin CARPAL TUNNEL RELEASE 06/12/1998 - 06/11/1999 Bilateral TONSILECTOMY, ADENOIDECTOMY, BILATERAL MYRINGOTOMY AND TUBES 06/12/1989 - 06/11/1990 Bilateral ABDOMINAL WALL SURGERY 10/14/2021 Left abscess removal LASIK 06/12/2000 - 06/11/2001 Bilateral DILATION AND CURETTAGE OF UTERUS 11/09/2021 DENTAL SURGERY 01/10/2019 - 02/09/2019 lower teeth removed and dentures placed DENTAL SURGERY 06/12/2001 - 06/11/2002 upper teeth removed and bridge placed ND LAPAROSCOPY TOT HYSTERECTOMY >250 G W/TUBE/OVAR 01/11/2022 N/A Procedure: ROBOTIC ASSISTED TOTAL HYSTERECTOMY; Surgeon: Daniel Ho MD; Location: MAIN OR; Service: FLATWORK WASHER - GYNECOLOGIC ONCOLOGY Medical History Medical History Date Comments Hypertension 08/24/2013 Fatty liver 12/19/2014 Endometriosis 12/14/2018 Disorder of thyroid gland 01/29/1994 Nonalcoholic fatty liver disease (NAFLD) Family History Medical History Relation Name Comments Bone cancer Cousin Stomach cancer Maternal Cousin Stomach cancer Maternal Grandmother Ursula Yañez se Colon cancer Paternal Grandmother Relation Name Status Comments Cousin Alive Maternal Cousin Alive Maternal Grandmother Ursula Fields Paternal Grandmother Social History Tobacco Use Types Packs/Day Years Used Date Smoking Tobacco: Former Cigarettes 1 30.4 0 10/25/1991 - 03/28/2022 Electronic cigarette Smokeless Tobacco: Never Tobacco Cessation:Ready to Q uit: Yes; Counseling Given: Yes Comments:Started e-cig on 03-28-22. States her primary goal is ending reg cigarettes. She is smoking e -cig 2x daily. She reports that she remains quit from cigarettes as of 03-28-2022. Difficulty obtaining chantix. Hilaria needs pt insurance info. Alcohol Use Standard Drinks/Week Comments Yes 1 (1 standard drink = 0.6 oz pur e alcohol) socially Comments No Sex and Gender Information Value Date Recorded Sex Assigned at Female 11/19/2021 2:51 PM CDT Legal Sex Female 2:16 PM CDT Gender Identity Female 11/19/2021 2:51 PM CDT Sexual Orientation Lesbian 11/19/2021 3: 13 PM CDT Obstetrics History Para Term AB IAB SAB Ectopic Multiple Livin g Live Births 2 0 0 Date Outcome GA Total Labor Labor/2nd/3rd Weight Sex Type Anes PTL Jasmin A1 A5 Name Clin Last Filed Vital Signs Vital Sign Reading Time Taken Comments Blood Pressure 121/81 01/15/2025 4:30 PM CDT Pulse 70 01/15/2025 4:30 PM CDT Temperature 36.7 °C (98.1 °F) 01/15/2025 4:27 PM CD T Respiratory Rate 20 01/15/2025 4:30 PM CDT Oxygen Saturation 98% 01/15/2025 4:30 PM CDT Inhaled Oxygen Concentration - - Weight 114.5 kg (252 lb 8.6 oz) 01/15/2025 1:34 PM CDT Height 167 cm (5' 5.75") 07/26/2024 10: 48 AM HAND RIGGER Body Mass Index 41.07 07/26/2024 10:48 AM HAND RIGGER Plan of Treatment Upcoming Encounters Date Type Department Care Team (Late st Contact Info) Description 01/23/2025 9:45 AM CDT Follow-Up MD [facility] [place] [facility] [address] [facility] [address] [place] [address] Aaron Lee MD [address] [place] [address] [email or web address] Maintenance Due Date Last Done Comments Pneumococcal Vaccine (1 of 2 - PCV) 1996 COVID-19 Vaccine ( - season) 2024 Influenza Vaccine (#1) 2025 Procedures Procedure Name Priority Date/Time Associated Diagnosis Comments MRI ABDOMEN W WO CONTRAST Routine 01/15/2025 4:04 PM CDT Fatty liver Liver mass MAMMO DIGITAL SCREENING BILATERAL W RIK Routine 11/29/2024 3:35 PM CDT Breast cancer screening MRI ABDOMEN W WO CONTRAST Routine 09/03/2024 9:13 AM CDT Liver mass POC CREATININE Routine 09/03/2024 7:12 AM CDT OSI MRI ABDOMEN Routine 06/04/2024 1:07 PM HAND RIGGER Liver mass OSI CT ABDOMEN AND PELVIS Routine 05/02/2024 1:10 PM HAND RIGGER Liver mass OSI GASTRIC EMPTYING Routine 02/06/2024 11:41 PM CDT Cancer after 01/19/2024 Results * MRI Abdomen with and without Contrast with Eovist (01/15/2025 4:04 PM CDT) Only the most recent of2 resultswithin the time period is included. Anatomical Region Laterality Modality Abdomen Magnetic Resonan ce 01/16/2025 11:0 0 AM CDT Impressions 01/16/2025 1:55 PM CDT Impression: 1. Cirrhotic, fatty liver with hepatosplenomegaly. 2. LI-RADS 4 observation at segment #6. ACTIONABLE ITEMS/RECOMMENDATIONS*: None. *An Actionable Finding is a finding that may be unrelated to the original reason for imaging but potentially actionable, meaning further investigation may be necessary. The Actionable Findings Vigilance Unit (AFVU) assists medical providers with responding to additional radiologic findings that are unexpected and potentially actionable. I personally reviewed these image(s) along with the resident's/fellow's interpretations, certify that if a procedure was performed I was physically present, and agree with the final report. Narrative 01/16/2025 1:55 PM CDT Examination: MRI ABDOMEN W WO CONTRAST on 01/15/2025 4:04 PM. Clinical History: Fatty liver Liver mass. Indication: concern liver mass per US. Comparison: Abdominal MRI performed 09/03/2024 Technique: Multiplanar multisequence imaging of the abdomen without and with intravenous contrast. FINDINGS: Lower chest: Trace pleural fluid bilaterally. Bibasilar dependent atelectasis. Hepatobiliary: Cirrhotic liver with innumerable small regenerating/siderotic nodules. Diffuse fatty liver with geographic pattern. There is a new non rim arterial phase heterogeneously hyperenhancing observation at segment #6 without portal venous washout or capsule, measuring up to 3.8 cm in the late arterial phase (series 5 image 316); it has HBP hypointensity mosaic architecture and restricted diffusion, ancillary findings favoring HCC: LR4. Subcentimeter arterially enhancing observations without washout is seen on both hepatic lobes, consistent with transient hepatic perfusion differences. The portal vein is patent. In addition, there is mild patchy hyperintense signal on diffusion weighted imaging but particularly in the segments 4 8 and 5 with heterogeneous ill-defined no masslike contrast enhancement suggesting confluent fibrosis. Spleen: Persistent splenomegaly at 14.5 cm a longitudinally at the midclavicular line. No suspicious splenic lesions. Pancreas: Normal in morphology without focal lesions, atrophy, or ductal dilatation. Adrenals: Normal. Kidneys: Normal without lesions or hydronephrosis. GI Tract: No suspicious lytic inflammatory changes or obstruction. Peritoneum/Retroperitoneum: No ascites. Lymph Nodes: No suspicious lymphadenopathy. 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 Musculoskeletal: No suspicious osseous lesions. Procedure Note Jose Holly MD - 01/16/2025 Examination: MRI ABDOMEN W WO CONTRAST on 01/15/2025 4:04 PM. Clinical History: Fatty liver Liver mass. Indication: concern liver mass per US. Comparison: Abdominal MRI performed 09/03/2024 Technique: Multiplanar multisequence imaging of the abdomen without andwith intravenous contrast. FINDINGS: Lower chest: Trace pleural fluid bilaterally. Bibasilar dependentatelectasis. Hepatobiliary: Cirrhotic liver with innumerable smallregenerating/siderotic nodules. Diffuse fatty liver with geographicpattern. There is a new non rim arterial phase heterogeneouslyhyperenhancing observation at segment #6 without portal venous washout orcapsule, measuring up to 3.8 cm in the late arterial phase (series 5 [id number]); it has HBP hypointensity mosaic architecture and restricteddiffusion, ancillary findings favoring HCC: LR4. Subcentimeter arteriallyenhancing observations without washout is seen on both hepatic lobes,consistent with transient hepatic perfusion differences. The portal veinis patent. In addition, there is mild patchy hyperintense signal on diffusionweighted imaging but particularly in the segments 4 8 and 5 withheterogeneous ill-defined no masslike contrast enhancement suggestingconfluent fibrosis. Spleen: Persistent splenomegaly at 14.5 cm a longitudinally at themidclavicular line. No suspicious splenic lesions. Pancreas: Normal in morphology without focal lesions, atrophy, or ductaldilatation. Adrenals: Normal. Kidneys: Normal without lesions or hydronephrosis. GI Tract: No suspicious lytic inflammatory changes or obstruction. Peritoneum/Retroperitoneum: No ascites. Lymph Nodes: No suspicious lymphadenopathy. Vessels: Incidentally noted duplicated infrarenal IVC draining the leftrenal vein. Musculoskeletal: No suspicious osseous lesions. IMPRESSION: Impression: 1. Cirrhotic, fatty liver with hepatosplenomegaly. 2. LI-RADS 4 observation at segment #6. ACTIONABLE ITEMS/RECOMMENDATIONS*: None. *An Actionable Finding is a finding that may be unrelated to the originalreason for imaging but potentially actionable, meaning furtherinvestigation may be necessary. The Actionable Findings Vigilance Unit(AFVU) assists medical providers with responding to additional radiologicfindings that are unexpected and potentially actionable. I personally reviewed these image(s) along with the resident's/fellow'sinterpretations, certify that if a procedure was performed I wasphysically present, and agree with the final report. Uche Pringle APRN [facility] MRI ORDERABLES Final Result * Mammography Digital Screening Bilateral with Rik (11/29/2024 3:35 PM CDT) Anatomical Region Laterality Modality Breast Bilateral Mammography Impressions 11/30/2024 6:59 AM CDT Bilateral There is no mammographic evidence of malignancy. Overall BI-RADS Category: 1 - Negative Recommend return to annual screening mammography, due on 11/2025. Narrative 11/30/2024 6:59 AM CDT CLINICAL INDICATION: Patient is a 49 y.o. female and is seen for screening. Mammography Digital Screening Bilateral with Rik Computer-aided detection was utilized by the radiologist in the interpretation of this examination. Tomosynthesis was performed in CC and MLO projections. COMPARISON: The present examination has been compared to prior imaging studies performed : 12/17/2021 Mammography Digital Screening Bilateral with Rik at [facility], 12/19/2022 Screening Mammogram w Rik - Bilateral at [facility] FINDINGS: There are scattered areas of fibroglandular density. Bilateral No dominant mass, architectural distortion, or suspicious calcifications are identified. Ashok Alistair [facility] MAMMOGRAPHY ORDERABLES Final Result * POC Creatinine (09/03/2024 7:12 AM CDT) POC Creatinine 0.9 0.6 - 1.3 mg/dL 09/03/2024 7:15 AM CDT [facility] Comment:Medications, especia lly hydroxyurea or supplements, such as ascorbate, can interfere with test results causing a falsely and significantly higher result than expected. If a problem is suspected with a patient's result, a sample should be sent to the laboratory for confirmatory testing. POC eGFR 79 >=60 mL/min/1.7 3 sq. m 09/03/2024 7:15 AM CDT [facility] Comment: The eGFRcr is calculated with the 2020 CKD-EPI creatinine equation using creatinine, patient's age, and sex for adults 18 years of age and older. Other factors, especially muscle mass, may affect accuracy and need to be considered. According to the Kidney Disease: Improving Global Outcomes (KDIGO) CKD Work Group 2012 Clinical Practice Guideline, chronic kidney disease (CKD) is defined as the abnormalities of kidney structure or function, present for more than 3 months, with implications for health. CKD should be classified by cause, GFR category, and albuminuria category. KDIGO guidelines provide the following GFR categories. Stage / Description / GFR mL/min/1.73 m2: G1* / Normal or high / >= 90 G2* / Mildly decreased / 60-89 G3a / Mildly to moderately decreased / 45-59 G3b / Moderately to severely decreased / 30-44 G4 / Severely decreased / 15-29 G5 / Kidney failure / <15 *In the absence of evidence of kidney damage, neither G1 nor G2 fulfill criteria for CKD. Blood 09/03/2024 7:12 AM CDT 09/03/2024 7:15 AM CDT Narrative [facility] - 09/03/2024 7:15 AM CDT Method description: The i-STAT is an analyzer used for in vitro quantification of various analytes in whole blood. The device uses a single disposable cartridge which contains microfabricated sensors, a calibration solution, fluidics system, and a waste chamber. Each test cartridge contains chemically sensitive biosensors on a silicon chip that are configured to perform specific tests. The microfabricated sensors measure analyte concentration by an electrochemical assay. us Aaron Lee MD POCT ORDERABLES - DEVICE Final R esult [facility] Unless otherwise noted, all lab tests performed by: Division of Pathology and Laboratory Medicine [address] [place] [id number] * OSI MRI ABDOMEN (06/04/2024 1:07 PM HAND RIGGER) 07/31/2024 7:57 AM HAND RIGGER Impressions [id number] - 07/31/2024 8:22 AM HAND RIGGER Fatty and cirrhotic liver with hepatosplenomegaly. A 3.1 cm LI-RADS 4 lesion in segment 7 and three LI-RADS 3 lesions in segments 5 and 6. Recommend follow-up with abdominal MRI with Eovist. ACTIONABLE ITEMS/RECOMMENDATIONS*: See impression *An Actionable Finding is a finding that may be unrelated to the original reason for imaging but potentially actionable, meaning further investigation may be necessary. The Actionable Findings Vigilance Unit (AFVU) assists medical providers with responding to additional radiologic findings that are unexpected and potentially actionable. Narrative [id number] - 07/31/2024 8:22 AM HAND RIGGER Examination: OSI MRI ABDOMEN on 06/04/2024 1:07 PM. Clinical History: Liver mass. Indication: Further information needed for cancer staging (please state in the comment field).. Comparison: 05/02/2024 CT abdomen pelvis FINDINGS: Lower Thorax: Unremarkable Liver: The liver is heterogeneous with nodular contour as well as diffuse signal loss on opposed phase images. Hepatomegaly 18 cm along the mid clavicular line. A 3.1 cm focus of arterial enhancement in segment 7 (series 8 image 25) no washout or pseudocapsule however does have some subtle heterogeneous T2 hyperintensity in this region (series 3 image 15), LI-RADS 4. Three subtle 1.9 to 2.0 cm foci of arterial enhancement in segment 5 and 6 (series 8 image 44 and 40), no without washout or pseudocapsule, no correlate on T2- or T1-WI, indeterminate, could be perfusional, LI-RADS 3. Gallbladder and bile ducts: No biliary ductal dilation. No gallstones, no evidence for acute cholecystitis. Mild adenomyomatosis of the gallbladder fundus. Spleen: Moderate splenomegaly 14.5 cm craniocaudally. Pancreas: No pancreatic mass or ductal dilation Adrenal glands: No adrenal mass. Kidneys and ureters: No hydronephrosis. No suspicious renal lesion. Gastrointestinal Tract: Nondilated bowel. Peritoneum/Retroperitoneum: No ascites. Lymph Nodes: No suspicious lymph nodes in the abdomen. Vessels: Unremarkable. Pain portal vein is patent 1.4 cm in diameter. Conventional hepatic arterial anatomy. No identifiable varices Musculoskeletal: No suspicious osseous lesion. Soft tissues are unremarkable. Procedure Note Jess, Luis S, MD - 07/31/2024 Examination: OSI MRI ABDOMEN on 06/04/2024 1:07 PM. Clinical History: Liver mass. Indication: Further information needed for cancer staging (please state inthe comment field).. Comparison: 05/02/2024 CT abdomen pelvis FINDINGS: Lower Thorax: Unremarkable Liver: The liver is heterogeneous with nodular contour as well as diffusesignal loss on opposed phase images. Hepatomegaly 18 cm along the midclavicular line. A 3.1 cm focus of arterial enhancement in segment 7(series 8 image 25) no washout or pseudocapsule however does have somesubtle heterogeneous T2 hyperintensity in this region (series 3 image 15),LI-RADS 4. Three subtle 1.9 to 2.0 cm foci of arterial enhancement insegment 5 and 6 (series 8 image 44 and 40), no without washout orpseudocapsule, no correlate on T2- or T1-W[place], indeterminate, could beperfusional, LI-RADS 3. Gallbladder and bile ducts: No biliary ductal dilation. No gallstones, noevidence for acute cholecystitis. Mild adenomyomatosis of the gallbladderfundus. Spleen: Moderate splenomegaly 14.5 cm craniocaudally. Pancreas: No pancreatic mass or ductal dilation Adrenal glands: No adrenal mass. Kidneys and ureters: No hydronephrosis. No suspicious renal lesion. Gastrointestinal Tract: Nondilated bowel. Peritoneum/Retroperitoneum: No ascites. Lymph Nodes: No suspicious lymph nodes in the abdomen. Vessels: Unremarkable. Pain portal vein is patent 1.4 cm in diameter.Conventional hepatic arterial anatomy. No identifiable varices Musculoskeletal: No suspicious osseous lesion. Soft tissues areunremarkable. IMPRESSION: Fatty and cirrhotic liver with hepatosplenomegaly. A 3.1 cm LI-RADS 4 lesion in segment 7 and three LI-RADS 3 lesions insegments 5 and 6. Recommend follow-up with abdominal MRI with Eovist. ACTIONABLE ITEMS/RECOMMENDATIONS*: See impression *An Actionable Finding is a finding that may be unrelated to the originalreason for imaging but potentially actionable, meaning furtherinvestigation may be necessary. The Actionable Findings Vigilance Unit(AFVU) assists medical providers with responding to additional radiologicfindings that are unexpected and potentially actionable. Uche Pringle CABLEMAN IMG OUTSIDE IMAGE ORDERABLES Fi nal Result [id number] * OSI CT Abdomen and Pelvis (05/02/2024 1:10 PM HAND RIGGER) Narrative Systemgenerated, Documentation - 07/26/2024 1:10 PM HAND RIGGER Study acquired at another institution. For comparison only. No MD Eugene originated interpretation requested or available. Uche Pringle CABLEMAN IMG OUTSIDE IMAGE ORDERABLES Fi nal Result * OSI Gastric Emptying (02/06/2024 11:41 PM CDT) Narrative Systemgenerated, Documentation - 07/26/2024 11:41 PM HAND RIGGER Study acquired at another institution. For comparison only. No MD Eugene originated interpretation requested or available. 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 PCP - General Gynecological Oncology 11/19/21 10/23/24 Char Brown MD [facility] [place] [address] [email or web address] PCP - External Referring Obstetrics/Gynecology 11/19/21 Daniel Ho MD [address] [place] [phone] [email or web address] PCP - General Gynecological Oncology 10/24/24 Ashok Sainz [address] [place] [phone] [email or web address] PCP - External Primary Care Provider Nurse Practitioner 11/26/24 Aarno Lee MD [address] [place] [address] [email or web address] [email or web address] Physician Oncology 07/26/24
[2025-01-18] MEDS ORDERED: MORPHINE 4 MG/ML SYR ONE (07:51)
[2025-01-18] MEDS ORDERED: ONDANSETRON 4 MG/2 ML VIAL ONE (07:51)
[2025-01-18] MEDS ORDERED: NA CHLORIDE 0.9% 1,000 ML ONE (07:52)
[2025-01-18 08:13] LABS: Absolute Lymphocytes (CBC) 1.4 K/uL (0.7-4.9); Hematocrit 40.5 % (36.0-45.0); Hemoglobin 14.3 g/dL (12.0-15.0); MCH 31.3 pg (27.0-35.0); MCHC 35.4 g/dL (32.0-36.0); MCV 88.4 fL (80-100); MPV 8.5 fL (7.6-11.3); Nucleated RBC Absolute Count 0.0 (0-0); Nucleated Red Blood Cells % 0.1 % (0-0); RBC Red Blood Cell Count 4.58 M/uL (3.86-4.86); White Blood Count 5.50 thou/uL (4.3-10.9)
[2025-01-18 08:26] LABS: ALT/SGPT 35.0 U/L (13-56); AST/SGOT 24.0 U/L (15-37); Albumin 3.4 g/dL (3.4-5.0); Albumin/Globulin Ratio 0.9 (1.1-1.8); Alkaline Phosphatase 87.0 U/L (45-117); Anion Gap 8.6 mEq/L (5.0-15.0); BUN Blood Urea Nitrogen 7.0 mg/dL (7-18); Globulin 3.8 g/dL (2.3-3.5); Glucose Level 124.0 mg/dL (74-106); Lipase 18.0 U/L (13-75); Potassium 3.6 mEq/L (3.5-5.1)
--- NOTE | 2025-01-18 08:59 | RAD REPORT ---
EXAMINATION: CT Abdomen Pelvis Wo Contrast CLINICAL INDICATION: Female, 49 years old. FLANK PAIN TECHNIQUE: CT abdomen and pelvis was performed, without IV contrast, as per department protocol. Axia l, sagittal and coronal reconstructions were obtained. One or more of the following dose reduction techniques were used: Automated exposure control, adjustment of the mA and kV according to the patien t size, and iterative reconstruction. Unless otherwise specified, incidental findings do not require dedicated imaging follow-up. COMPARISON: 05/02/2024 FINDINGS: The lack of intravenous contrast limits the sensitivity of this exam for evaluation of solid visceral organs, vascular structures, and retroperitoneum. LOWER CHEST: The visualized lung bases are clear. LIVER: Normal in size. Nodular contour compatible with cirrhosis. No focal lesion. BILIARY SYSTEM: No suspicious abnormalities. SPLEEN: Enlarged measuring 14.1 cm long axis.. No focal lesion. PANCREAS: No mass, ductal dilation, or sarah beth-pancreatic fluid. ADRENALS: Normal; no mass. KIDNEYS AND URETERS: Normal size and contour. No hydronephrosis. URINARY BLADDER: Normal contour. GASTROINTESTINAL TRACT: No evidence of bowel obstruction, significant free fluid, free air or abscess . APPENDIX: Normal appendix. LYMPH NODES: No lymphadenopathy. MUSCULOSKELETAL: No acute or suspicious osseous abnormality. ADDITIONAL FINDINGS: None. IMPRESSION: No acute or concerning abnormalities in the abdomen or pelvis, with evaluation limited by lack of IV contrast. Stable findings as above.
[2025-01-18] MEDS ORDERED: KETOROLAC 30 MG/ML INJ ONE (09:21)
--- NOTE | 2025-01-18 10:11 | EDPHYS ---
Physician Documentation [facility] Name: Brandi Joyce Age: 49 yrs Sex: Female : 1975 Arrival Date: 01/18/2025 Time: 07:25 Bed 19 Private MD: ED Physician Garth Simons HPI: 01/18 09:05 This 49 yrs old Female presents to ER via Ambulatory with complaints of Flank Pain - RT.ci 09:05 Patient is a 49-year-old female with PMH hypertension, hypothyroidism who presents to the ED with chief complaint of right flank pain that began last night. Pain is sharp, nonradiating, no aggravating or relieving factors. Denies any hematuria, dysuria, fever. No history of kidney stones. Denies any trauma. No bowel/bladder dysfunction.. 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 - Infectious Disease History:: Denies. - Social history:: Smoking status: Reported history of juuling and/or vaping. Patient/guardian denies using tobacco. - History obtained from: . ROS: 09:05 Constitutional: Negative for fever, chills, and weight loss, Cardiovascular: Negative ci for chest pain, palpitations, and edema, Respiratory: Negative for shortness of breath, cough, wheezing, and pleuritic chest pain, 09:05 Abdomen/GI: Positive for Negative for nausea, vomiting, and diarrhea, 09:05 Back: Positive for flank pain, on the right, Exam: 09:05 Constitutional: This is a well developed, well nourished patient who is awake, alert, ci and in no acute distress. Head/Face: Normocephalic, atraumatic. Cardiovascular: Regular rate and rhythm with a normal S1 and S2. No gallops, murmurs, or rubs. Normal PMI, no JVD. No pulse deficits. Respiratory: Lungs have equal breath sounds bilaterally, clear to auscultation and percussion. No rales, rhonchi or wheezes noted. No increased work of breathing, no retractions or nasal flaring. Abdomen/GI: Soft, non-tender, with normal bowel sounds. No distension or tympany. No guarding or rebound. No evidence of tenderness throughout. Back: No spinal tenderness. +right costovertebral tenderness. Full range of motion. Skin: Warm, dry with normal turgor. Normal color with no rashes, no lesions, and no evidence of cellulitis. Neuro: Awake and alert, GCS 15, oriented to person, place, time, and situation. Cranial nerves II-XII grossly intact. Motor strength 5/5 in all extremities. Sensory grossly intact. Cerebellar exam normal. Normal gait. Vital Signs: 07:39 BP 130 / 75; Pulse 93; Resp 17; Pulse Ox 100% ; Weight 115.67 kg; Height 5 ft. 6 in. ; ll1 Pain 7/10; 08:38 Temp 97.8; jl7 09:35 BP 135 / 78; Pulse 63; Resp 17; Pulse Ox 97% on R/A; ll1 10:23 BP 134 / 76; Pulse 87; Resp 20; Temp 98; Pulse Ox 100% ; me1 07:39 Body Mass Index 41.16 (115.67 kg, 167.64 cm) ll1 07:39 Pain Scale: Adult ll1 MDM: 07:35 Medical Screening Exam initiated ci 09:05 Differential diagnosis: nephrolithiasis, pyelonephritis, UTI, diverticulitis, ci pancreatitis, ruptured AAA, dissecting AAA. Data reviewed: vital signs, nurses notes. 11:00 ED course: CT abdomen/pelvis with no nephrolithiasis, no obstruction. Pain reproducible ci to tenderness. Patient has no midline spinal tenderness on exam. Suspicion for musculoskeletal etiology. Patient was given muscle relaxant, pain meds with significant improvement in pain. Stable for discharge and close outpatient follow-up.. 01/18 07:42 Order name: CBC with Diff; Complete Time: 09:08 ci 01/18 07:42 Order name: CMP; Complete Time: 09:08 ci 08 07:42 Order name: Lipase; Complete Time: 09:08 ci 08 07:42 Order name: Test, Urine; Complete Time: 09:08 ci 01/18 07:42 Order name: CT Abd/Pelvis - Without Contrast; Complete Time: 09:08 ci 01/18 07:42 Order name: IV Saline Lock; Complete Time: 07:49 ci 01/18 07:42 Order name: Labs collected and sent; Complete Time: 07:49 ci Administered Medications: 08:00 Drug: Ondansetron IVP 4 mg IVP once; over 2 minutes Route: IVP; Site: right antecubital;1 09:01 Follow up: Response: No adverse reaction [facility] 08:00 Drug: morphine IVP or IV 4 mg IVP once over 4 mins {Note: pain 7/10 RASS 0.} Route: ll1 IVP; Infused Over: 4 mins; Site: right antecubital; 09:01 Follow up: Response: No adverse reaction; Pain is decreased; RASS: Alert and Calm (0) [facility] 08:00 Drug: NS 0.9% IV 1000 ml IV at 1 bolus Per protocol; to be given as a bolus over 60 ll1 minutes Route: IV; Rate: 1 bolus; Site: right antecubital; 09:04 Follow up: Response: No adverse reaction; IV Status: Completed infusion; IV Intake: ll1 1000ml 09:24 Drug: Ketorolac IVP 15 mg IVP once {Note: pain 7/10 RASS 0.} Route: IVP; Site: right ll1 antecubital; 10:24 Follow up: Response: No adverse reaction; Pain is decreased ga1 09:24 Drug: Methocarbamol PO 500 mg PO once Route: PO; ll1 10:24 Follow up: Response: No adverse reaction; Pain is decreased me1 Disposition Summary: 01/18/25 10:10 Discharge Ordered Notes: Location: Home ci Condition: Stable ci Diagnosis - Abdominal pain, Generalized - Right Flank Pain ci - Other diseases of spleen - Enlarged Spleen ci Followup: ci - With: Private Physician - When: 2 - 3 days - Reason: Recheck today's complaints, Re-evaluation by your physician Discharge Instructions: - Discharge Summary Sheet ll1 - Flank Pain, Adult ci Forms: - Work release form ll1 - Medication Reconciliation Form ci - Antibiotic Education ci - Prescription Opioid Use ci - Patient Portal Instructions ci - Leadership Thank You Letter ci Prescriptions: - Anaprox DS 550 mg Oral Tablet - take 1 tablet ORAL route every 12 hours As needed; 20 tablet; Refills: 0, ci Product Selection Permitted - methocarbamol 500 mg Oral tablet - take 2 tablets ORAL route 2 times per day as needed; 20 tablet; Refills: 0, ci Product Selection Permitted Signatures: Dispatcher [employer] Sasha Hussein RN RN ll1 IheonunekwuGarth Michelle RN me1
--- NOTE | 2025-01-18 10:11 | ER ---
Nurse's Notes [facility] Name: Brandi Joyce Age: 49 yrs Sex: Female : 1975 Arrival Date: 01/18/2025 Time: 07:25 Bed 19 Private MD: Diagnosis: Abdominal pain, Generalized-Right Flank Pain;Other diseases of spleen-Enlarged Spleen Presentation: 01/18 07:39 Chief complaint: Patient states: R flank pain started last night. Coronavirus screen: ll1 Client denies travel out of the [place] in the last 14 days. At this time, the client does not indicate any symptoms associated with coronavirus-19. Ebola Screen: Patient denies travel to an Ebola-affected area in the 21 days before illness onset. Initial Sepsis Screen: Does the patient meet any 2 criteria? No. Patient's initial sepsis screen is negative. Does the patient have a suspected source of infection? No. Patient's initial sepsis screen is negative. Risk Assessment: Do you want to hurt yourself or someone else? Patient reports no desire to harm self or others. Onset of symptoms was January 17, 2025. 07:39 Method Of Arrival: Ambulatory ll1 07:39 Acuity: BROOKE 3 ll1 Triage Assessment: 07:37 General: Appears uncomfortable, Behavior is calm, cooperative, appropriate for age. ll1 Pain: Complains of pain in R flank. GI: Reports nausea. : Reports pain in right flank(s). 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 - Infectious Disease History:: Denies. - Social history:: Smoking status: Reported history of juuling and/or vaping. Patient/guardian denies using tobacco. - History obtained from: . Screenin:56 [facility] ED Fall Risk Assessment (Adult) History of falling in the last 3 months, ll1 including since admission No falls in past 3 months (0 pts) Confusion or Disorientation No (0 pts) Intoxicated or Sedated No (0 pts) Impaired Gait No (0 pts) Mobility Assist Device Used No (0 pt) Altered Elimination No (0 pt) Score/Fall Risk Level 0 - 2 = Low Risk Maintained a safe environment, Hourly rounding (assess needs \T\ fall precautionary measures) done. Abuse screen: Denies threats or abuse. Nutritional screening: No deficits noted. Tuberculosis screening: No symptoms or risk factors identified. Assessment: 08:36 Reassessment: No changes from previously documented assessment. Patient and/or family ll1 updated on plan of care and expected duration. Pain level reassessed. Patient is alert, oriented x 3, equal unlabored respirations, skin warm/dry/pink. 09:25 Reassessment: No changes from previously documented assessment. Patient and/or family ll1 updated on plan of care and expected duration. Pain level reassessed. Patient is alert, oriented x 3, equal unlabored respirations, skin warm/dry/pink. Vital Signs: 07:39 BP 130 / 75; Pulse 93; Resp 17; Pulse Ox 100% ; Weight 115.67 kg; Height 5 ft. 6 in. ; ll1 Pain 7/10; 08:38 Temp 97.8; jl7 09:35 BP 135 / 78; Pulse 63; Resp 17; Pulse Ox 97% on R/A; ll1 10:23 BP 134 / 76; Pulse 87; Resp 20; Temp 98; Pulse Ox 100% ; me1 07:39 Body Mass Index 41.16 (115.67 kg, 167.64 cm) ll1 07:39 Pain Scale: Adult ll1 ED Course: 07:29 Patient arrived in ED. cj3 07:35 Garth Simons is Attending Physician. ci 07:38 Sasha Watkins, RN is Primary Nurse. ll1 07:38 Arm band placed on Patient placed in an exam room, on a stretcher. ll1 07:40 Triage completed. ll1 07:49 Initial lab(s) drawn, by wy, sent to lab. Inserted saline lock: 22 gauge in right ll1 antecubital area, using aseptic technique. Blood collected. Flushed with 10 mL NS. 07:56 Patient has correct armband on for positive identification. Provided Education on: ER ll1 procedures and process. 07:56 No provider procedures requiring assistance completed. ll1 07:59 CT Abd/Pelvis - Without Contrast In Process Unspecified. EDMS 08:36 Test, Urine Sent. em1 10:31 IV discontinued, intact, bleeding controlled, No redness/swelling at site. Pressure me1 dressing applied. Administered Medications: 08:00 Drug: Ondansetron IVP 4 mg IVP once; over 2 minutes Route: IVP; Site: right antecubital;ll1 09:01 Follow up: Response: No adverse reaction 1 08:00 Drug: morphine IVP or IV 4 mg IVP once over 4 mins {Note: pain 7/10 RASS 0.} Route: ll1 IVP; Infused Over: 4 mins; Site: right antecubital; 09:01 Follow up: Response: No adverse reaction; Pain is decreased; RASS: Alert and Calm (0) 1 08:00 Drug: NS 0.9% IV 1000 ml IV at 1 bolus Per protocol; to be given as a bolus over 60 ll1 minutes Route: IV; Rate: 1 bolus; Site: right antecubital; 09:04 Follow up: Response: No adverse reaction; IV Status: Completed infusion; IV Intake: ll1 1000ml 09:24 Drug: Ketorolac IVP 15 mg IVP once {Note: pain 7/10 RASS 0.} Route: IVP; Site: right ll1 antecubital; 10:24 Follow up: Response: No adverse reaction; Pain is decreased wy1 09:24 Drug: Methocarbamol PO 500 mg PO once Route: PO; ll1 10:24 Follow up: Response: No adverse reaction; Pain is decreased me1 Medication: 07:56 VIS not applicable for this client. ll1 Intake: 09:04 IV: 1000ml; Total: 1000ml. ll1 Outcome: 10:10 Discharge ordered by . ci 10:31 Discharged to home ambulatory, wy1 10:31 Condition: stable 10:31 Discharge instructions given to patient, Instructed on discharge instructions, follow up and referral plans. medication usage, Demonstrated understanding of instructions, follow-up care, medications, Prescriptions given X 2, 10:31 Patient left the ED. me1 Signatures: Dispatcher [employer] EDLuis Crawford em1 Catia Mann RN RN jl7 Sasha Watkins RN RN ll1 Helean Miramontes RN RN me1 Garth Simons Celeste 3
[2025-01-18 10:54] VITALS: O2SAT 100
[2025-01-18 11:11] VITALS: BP 134/76; TEMP 98
== END 2025-01-18 10:31 | disposition home or self-care (01) ==
LOC: ER 07:25
DX: R10.84 Generalized abdominal pain (principal); R16.1 Splenomegaly, not elsewhere classified; I10 Essential (primary) hypertension
CPT/HCPCS: 96361; 85025; 36415; 81025; 83690; 80053; 74176; 96375; 96374; 99284; J2405; J7030